=== PATIENT | female | born 1990 | race Two or more races ===

== ENCOUNTER 2017-10-25 17:55 | Emergency (ER) | payer BC ==
[2017-10-25 19:12] LABS: URINE HCG POC HCG NEGATIVE (Negative)
[2017-10-25 19:22] LABS: BASO % 0 % (0-3); EOS # 0.2 x10^3/uL (0.0-0.7); EOS % 1 % (0-3); HEMATOCRIT 44.2 % (36.0-47.0); LYMPH # 0.4 x10^3/uL (1.0-4.8); LYMPH % 3 % (24-48); MEAN CORPUSCULAR HEMOGLOBIN 31 pg (25-35); MEAN CORPUSCULAR HGB CONC 34 g/dL (31-37); MEAN CORPUSCULAR VOLUME 92 fL (79-100); MONO # 0.9 x10^3/uL (0.0-1.1); MONO % 6 % (0-9); NEUT # 13.3 x10^3uL (1.8-7.7); NEUT % 90 % (31-73); PLATELET COUNT 284 x10^3/uL (140-400); RED CELL DISTRIBUTION WIDTH 12.6 % (11.5-14.5); WHITE BLOOD COUNT 14.7 x10^3/uL (4.0-11.0)
[2017-10-25 19:25] LABS: ADD MAN DIFF? YES
[2017-10-25 19:32] LABS: BILIRUBIN,URINE SMALL (NEG); CLARITY,URINE CLEAR; COLOR,URINE AMBER; GLUCOSE,URINE NEGATIVE (NEG); NITRITE,URINE NEGATIVE (NEG); PROTEIN,URINE NEGATIVE (NEG-TRACE); UROBILINOGEN,URINE 0.2 mg/dL (0.2 mg/dL)
[2017-10-25 19:48] LABS: BACTERIA,URINE MANY /HPF (0-FEW); SQUAMOUS EPITHELIAL CELL,UR OCC /LPF
[2017-10-25 20:03] LABS: ANION GAP 11 (6-14); BLOOD UREA NITROGEN 13 mg/dL (7-20); BUN/CREATININE RATIO 19 (6-20); CALCIUM 8.7 mg/dL (8.5-10.1); CARBON DIOXIDE 26 mmol/L (21-32); CHLORIDE 103 mmol/L (98-107); CREATININE 0.7 mg/dL (0.6-1.0); GFR 98.9; GLUCOSE 124 mg/dL (70-99); POTASSIUM 3.8 mmol/L (3.5-5.1); SODIUM 140 mmol/L (136-145)
[2017-10-25 20:18] LABS: ALBUMIN 3.8 g/dL (3.4-5.0); ALBUMIN/GLOBULIN RATIO 0.9 (1.0-1.7); ALK PHOS 76 U/L (46-116); ALT (SGPT) 24 U/L (14-59); AST (SGOT) 19 U/L (15-37); LIPASE 80 U/L (73-393); TOTAL BILIRUBIN 0.7 mg/dL (0.2-1.0); TOTAL PROTEIN 8.1 g/dL (6.4-8.2)
[2017-10-25 20:21] LABS: % BANDS 28 % (0-9); % EOS 1 % (0-5); % LYMPHS 3 % (24-48); % MONOS 5 % (0-10); % SEGS 63 % (35-66); PLT ESTIMATE ADEQUATE (ADEQUATE); TOXIC VACUOLATION SLIGHT
[2017-10-25] MEDS ORDERED: CONTRAST GIVEN MC (22:45)
[2017-10-25] MEDS: IOHEXOL 300 MG/ML 100ML VIAL. IV (23:24)
[2017-10-26] MEDS: ONDANSETRON ODT 4 MG TAB.RAPDIS. PO (00:02)
[2017-10-26] MEDS: AZITHROMYCIN 250 MG TABLET. PO (00:02)
[2017-10-26] MEDS: cefTRIAXone IM 250 MG VIAL IM (00:03)
[2017-10-28 14:23] LABS: CHLAMYDIA PROBE Negative (Negative); GC PROBE Negative (Negative)
== END 2017-10-26 00:48 | disposition home or self-care (01) ==
LOC: ER 10-26 00:48
DX: Q61.3 Polycystic kidney, unspecified (principal)
CPT/HCPCS: 36415; 74177; 76830; 76856; 80053; 81001; 81025; 83690; 85007; 85025; 87086; 87491; 87591; 96372; 99285-25; J0696; Q0111; Q0144; Q0162; Q9967